=== PATIENT | male | born 1940 | race Caucasian/White ===

== ENCOUNTER 2017-05-23 08:48 | Day surgery (SDC) | payer BC ==
[~2017-05-23] VITALS: Ht 165.1 cm; Wt 95.3 kg
[~2017-05-23 08:48] MED LIST: CEFAZOLIN SOD 1 GM/ ISO 50 ML PREMIX IV ONE
[2017-05-23] MEDS ORDERED: ONDANSETRON HCL 4 MG/2 ML VIAL IVP ONE (12:05)
[2017-05-23] MEDS ORDERED: BUPIVACAINE /PF 0.25% 30 ML VIAL INJ ONE (12:05)
[2017-05-23] MEDS ORDERED: NS IRRIG SOLN 1000 ML IR ONE (12:05)
[2017-05-23] MEDS ORDERED: fentaNYL CITRATE/PF 100 MCG/2 ML AMP IVP ONE (12:05)
[2017-05-23] MEDS ORDERED: PROPOFOL 200MG/ 20ML VIAL (DIPRIVAN) IV ONE (12:05)
[2017-05-23] MEDS ORDERED: ROCURONIUM BROMIDE 10 MG/ML (ZEMURON) IV ONE (12:05)
[2017-05-23] MEDS ORDERED: MIDAZOLAM HCL 5 MG/5 ML VIAL IVP ONE (12:05)
[2017-05-23] MEDS ORDERED: SEVOFLURANE 15 MIN GAS INH ONE (12:05)
[2017-05-23] MEDS ORDERED: LR 1,000 ML IV SCH (12:58)
[2017-05-23] MEDS ORDERED: METOCLOPRAMIDE HCL 10 MG/2 ML VIAL IVP PRN (13:00)
[2017-05-23] MEDS ORDERED: MORPHINE 4 MG/ML INJ. SYRINGE IVP PRN ×3 (13:00)
[2017-05-23] MEDS ORDERED: D5/0.45 NS 1,000 ML IV SCH (13:19)
[2017-05-23] MEDS ORDERED: HYDROmorphone 1 MG INJ. 1 MG/ML AMPUL IVP PRN (13:30)
[2017-05-23] MEDS ORDERED: HYDROcodone/ACETAMIN 5-325 MG TAB (NORCO/ VICODIN) PO PRN ×2 (13:30)
[2017-05-23 14:03] VITALS: BP_SYST 177
== END 2017-05-23 15:00 | disposition home or self-care (01) ==
LOC: SDS 08:48 → SMU 08:48 → SDS 15:00
PROVIDERS: ATTEND Colon & Rectal Surgery
DX: C44.719 Basal cell carcinoma of skin of left lower limb, including hip (principal); I10 Essential (primary) hypertension; E11.9 Type 2 diabetes mellitus without complications; M19.90 Unspecified osteoarthritis, unspecified site; E66.01 Morbid (severe) obesity due to excess calories; E78.5 Hyperlipidemia, unspecified; Z87.19 Personal history of other diseases of the digestive system; Z68.34 Body mass index [BMI] 34.0-34.9, adult; Z79.899 Other long term (current) drug therapy
CPT/HCPCS: 11606; 12034; 88305; J0690; J2250; J2405; J2704; J3010; J3490